=== PATIENT | male | born 1995 | race Caucasian/White ===

== ENCOUNTER 2017-05-22 09:30 | Outpatient (RCR) | payer BC, SELFPAY ==
--- NOTE | 2017-04-18 07:38 | HP.OTEVAL_ITS ---
Patient's Visit Information ELLYN CÁRDENAS is a 22 year old M, referred to Occupational Therapy by NADEEM ESPINOZA,MARCELLE ESPINOZA,NADEEM Sebastian, with a diagnosis of syndactyly. 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 Pt attends session today stating need of therapy to recover to PLOF- Pt is attending [employer] for his [facility] year. pt states he has not noticed a lot of pain but has cont. to keep incisions covered. - Objective Objective/Observation: pt demo with healing incisions on left ring finger and left middle finger- three stitches slight blood blister on medial side of MF. - ROM ROM Comments: pt demo the ability to form a composite fist. Digit add and abduction. - Edema Other: No edema noted - Hand/Wrist Evaluation Total Score of Pain & Functional Sections: 12 - Goals Goal:: pt will demo understanding of scar mtg by end of 1st session. Pt will demo understanding of scar gel use once wound is healed nightly for three weeks. Goal:: pt will demo understanding of wound mtg by end of 1st session. pt will return in 3 weeks demo closure of wound. - Rehabilitation General Assessment: S/P 4 weeks with wound and stitches x3 in left MF/RF. pt would benefit from scar mtg desensitization Rehabilitation Potential: Excellent - Anticipated Interventions Anticipated Interventions: Scar Care, Triggerpoint Release, Desensitization, Wound Care, Modalities - Visit Plan Frequency: Monthly Duration: 2 Months General Plan: ed. pt on wound care and ed on removal of dry skin- pt ed. on scar mtg and desensitization-. pt ed. and given scar gel to use once wound is gone- TEXT: Thank you for the opportunity to evaluate your patient. For Medicare and Medicare HMO plans, please review the plan of care and approve it. It will need to be FAXED BACK to us at [phone] for Medicare purposes. Please let me know if there are questions or concerns regarding this plan of care. Physician Signature: Date:
--- NOTE | 2017-05-22 09:48 | HP.OTDCSUM_ITS ---
HP - OT D/C Summary It has been my pleasure to treat ELLYN CÁRDENAS under orders from NADEEM ESPINOZA, MARCELLE ESPINOZA,NADEEM Sebastian for the diagnosis of syndactyly for a total of 2 visit(s). Please see the following information for a summary of their discharge status. - Objective Objective/Function: Pt demo good understanding of scar mtg pt demo full functional ROM and strength - Goals Patient Goals: Decrease Sensitivity Other: decrease scar hypertrophy/adhesions Goal:: pt will demo understanding of scar mtg by end of 1st session. Pt will demo understanding of scar gel use once wound is healed nightly for three weeks. Goal:: pt will demo understanding of wound mtg by end of 1st session. pt will return in 3 weeks demo closure of wound. - Plan Plan: D/C - D/C Information Discharge Comments: pt has progressed well with his recovery- pt demo full functional ROM and strength. he reports no pain and that he is ind. with BADSL and IADLS. pt has met functional goals and is D/C at this time. If there are questions or concerns regarding this patient's occupational therapy , please fell free to call me at [phone]. Thank you for the referral of this patient. Sincerely, Mirian Thornton, OTR/L, CHT
== END 2017-05-22 19:00 | disposition home or self-care (01) ==
LOC: OT 09:30
DX: Q70.9 Syndactyly, unspecified (principal)
CPT/HCPCS: 97166; 97530